=== PATIENT | male | born 2000 | race Caucasian/White ===

== ENCOUNTER 2018-04-08 19:23 | Emergency (ER) | payer SELFPAY ==
[~2018-04-08] VITALS: Ht 177.8 cm; Wt 86.2 kg
[2018-04-08 19:23] VITALS: BP 126/75
[~2018-04-08 19:23] MED LIST: ALBUTEROL; ALBUTEROL0.09 MG/A2 IH; ATARAX25 MG PO; AUGMENTIN 875 M1 TAB PO; AUGMENTIN PO; AUGMENTIN XR; CLARAVIS40 MG PO; DOXEPIN RC; EAR DROPS; FLONASE0.05 MG/AC NS; FLOXIN; MEDROL DOSEPAK4 MG PO; PRAMOXINE RC; TAGAMET300 MG PO; ZITHROMAX Z PA250 MG PO; ZOFRAN ODT4 MG SL
== END 2018-04-08 23:37 | disposition home or self-care (01) ==
LOC: ED 19:23
DX: N63.0 Unspecified lump in unspecified breast (principal); Z88.6 Allergy status to analgesic agent; Z91.018 Allergy to other foods; Z91.012 Allergy to eggs

== ENCOUNTER 2020-05-26 22:32 | Emergency (ER) | payer BC ==
[~2020-05-26] VITALS: Ht 172.7 cm; Wt 74.8 kg
[2020-05-26 22:37] VITALS: BP 133/83
[2020-05-26 23:02] LABS: BASO % 0.3 % (0.0-1.0); EOS # 0.1 10*3/uL (0.0-0.4); EOS % 1.2 % (1.0-4.0); HEMATOCRIT 43.7 % (42.0-52.0); LYMPH # 1.5 10*3/uL (1.3-4.4); LYMPH % 13.7 % (27.0-41.0); MEAN CELL VOLUME 85.5 fl (80.0-94.0); MEAN CORPUSCULAR HGB 29.2 pg (27.0-31.0); MEAN CORPUSCULAR HGB CONC 34.1 g/dl (33.0-37.0); MEAN PLATELET VOLUME 9.4 fl (9.6-12.3); MONO # 0.7 10*3/uL (0.1-1.0); MONO % 5.8 % (3.0-9.0); NEUT # 8.8 10*3/uL (2.3-7.9); NEUT % 78.7 % (47.0-73.0); PLATELET COUNT AUTOMATED 248 10*3/uL (130-400); RED BLOOD COUNT 5.11 10*6/uL (4.50-5.90); RED CELL DISTRI WIDTH 12.3 % (0-14.5); WHITE BLOOD COUNT 11.1 10*3/uL (4.8-10.8)
[2020-05-26 23:13] LABS: BILIRUBIN NEGATIVE (NEGATIVE); BLOOD NEGATIVE (NEGATIVE); CLARITY SL CLOUDY (CLEAR); COLOR YELLOW (YELLOW); GLUCOSE NEGATIVE (NEGATIVE); KETONE NEGATIVE (NEGATIVE); LEUKO ESTERASE NEGATIVE (NEGATIVE); NITRITE NEGATIVE (NEGATIVE); UROBILINOGEN 0.2 E.U./dl (0.2-1.0)
[2020-05-26 23:18] LABS: ALBUMIN 4.2 gm/dl (3.1-4.5); ALKALINE PHOSPHATASE 80 U/L (45-117); BUN 15 mg/dl (7-24); CHLORIDE 109 mmol/L (98-107); CREATININE 0.99 mg/dL (0.70-1.30); LIPASE 87 U/L (73-393); POTASSIUM 3.8 mmol/L (3.5-5.1); SGOT/AST 14 IU/L (3-35); SGPT/ALT 24 U/L (12-78); SODIUM 138 mmol/L (136-145); TOTAL PROTEIN 7.8 gm/dL (6.4-8.2)
[2020-05-26 23:18] LABS: WBC 0-2 wbc/hpf (0-5)
[2020-05-27] MEDS ORDERED: PROTONIX40 MG PO (02:07)
== END 2020-05-27 02:11 | disposition home or self-care (01) ==
LOC: ED 22:32
PROVIDERS: Emergency Medicine Emergency Medical Services
DX: K29.00 Acute gastritis without bleeding (principal); R63.4 Abnormal weight loss; J45.909 Unspecified asthma, uncomplicated; Z91.018 Allergy to other foods; Z91.012 Allergy to eggs

== ENCOUNTER → 2020-10-08 | Outpatient (CLI) | payer BC ==
[~2020-10-08] MED LIST changes: +PROTONIX40 MG PO
== END | disposition home or self-care (01) ==
LOC: COVID19 15:01
PROVIDERS: ATTEND Internal Medicine
DX: Z20.828 Contact with and (suspected) exposure to other viral communicable diseases (principal)

== ENCOUNTER → 2021-06-12 | Outpatient (CLI) | payer BC | END | disposition home or self-care (01) | LOC: RAD 16:35 | PROVIDERS: ATTEND Chiropractor | DX: M54.5 Low back pain (principal) ==